=== PATIENT | female | born 1960 | race Caucasian/White ===

== ENCOUNTER 2017-01-08 12:44 | Day surgery (SDC) | payer OTHER ==
[2017-01-08 15:05] VITALS: BP 118/69; PULSE 79; RESP 18; TEMP 98.4; O2SAT 98
[2017-01-08 15:30] VITALS: BP 95/56; PULSE 77; RESP 18; O2SAT 97
[2017-01-08] MEDS ORDERED: LIDOCAINE HCL 1% PF 30 ML VIAL ONE (15:43)
--- NOTE | 2017-01-08 16:55 | RADRPT ---
EXAM DATE/TIME: 01/08/2017 13:15 [facility] COMPARISON: No previous studies available for comparison. EXTERNAL COMPARISON: [facility], US THYROID , Dec 13 2016 INDICATIONS : Enlarged lymph node. MEDICAL HISTORY : Stroke. A fib. Hyperlipidemia. Lupus. SURGICAL HISTORY : L3 and L5 fusion. Heart surgery ablation. ENCOUNTER: Initial ACUITY: 1 month PAIN SCORE: 2/10 LOCATION: Right neck ORGAN: Right lymph node submandibular. SPECIMENS: Three core specimen(s) submitted for pathologic evaluation. DEVICE: 18 gauge Bio Pince needle Post procedure scanning reveals no hematoma or other complication. The possibility does exist that the tissue obtained will be non-diagnostic. If the sample is non-alex gnostic a repeat biopsy or surgical biopsy may need to be performed. TECHNIQUE: 1. Ultrasound guidance for needle biopsy. 2. Needle biopsy. The risks, benefits, and alternatives to ultrasound guided needle biopsy were explained to the patien t in detail including the risk of bleeding and infection. Written and verbal informed consent was ob tained. With the patient on the ultrasound table, images were obtained. Overlying skin was prepped and drape d in the usual sterile fashion and Lidocaine was utilized as a local anesthetic. Under direct ultrasound guidance 3, 18 gauge cores were obtained. The patient tolerated the procedure well and left the ultrasound suite in stable condition. CONCLUSION: Uncomplicated ultrasound guided needle biopsy of the palpable submandibular node on the right. Chang Montoya MD FACR on January 08, 2017 at 16:53 Board Certified Radiologist. This report was verified electronically.
== END 2017-01-08 15:30 | disposition home or self-care (01) ==
LOC: HRAD 12:44 → HRIP 12:48 → HRAD 15:30
PROVIDERS: ATTEND Internal Medicine Endocrinology, Diabetes & Metabolism
DX: R59.0 Localized enlarged lymph nodes (principal); E78.5 Hyperlipidemia, unspecified; I48.91 Unspecified atrial fibrillation; M32.9 Systemic lupus erythematosus, unspecified; Z86.73 Personal history of transient ischemic attack (TIA), and cerebral infarction without residual deficits
CPT/HCPCS: 38505; 76942; 88305; 88333

== ENCOUNTER 2017-02-20 09:53 | Day surgery (SDC) | payer OTHER ==
[2017-02-20 10:37] VITALS: BP 97/63; PULSE 69; RESP 16; TEMP 99; O2SAT 95
--- NOTE | 2017-02-25 07:51 | RADRPT ---
EXAM DATE/TIME: 02/24/2017 00:00 [facility] COMPARISON: US GUIDED LYMPH NODE BIOSPY, RT, January 08, 2017, 13:15. INDICATIONS : Previous right submandibular lymph node biopsy FINDINGS: Patient had a recent biopsy of a right submandibular lymph node. The pathology was inconclusive for m alignancy. Pathology had recommended surgical consultation and excisional biopsy if suspicious mass r emains.CONCLUSION: Biopsy was not performed of the left or right submandibular lymph node. Previous biopsy of a right aceves bmandibular lymph node was inconclusive. Pathology recommend surgical consultation and excision if cl inically indicated. Miguel Angel Matos MD on February 25, 2017 at 7:45 Board Certified Radiologist. This report was verified electronically.
== END 2017-02-20 10:40 | disposition home or self-care (01) ==
LOC: HRAD 09:53 → HRIP 09:58 → HRAD 10:40
PROVIDERS: ATTEND Otolaryngology Otolaryngology/Facial Plastic Surgery
DX: Z09 Encounter for follow-up examination after completed treatment for conditions other than malignant neoplasm (principal); R22.1 Localized swelling, mass and lump, neck